=== PATIENT | female | born 1980 | race Caucasian/White ===

== ENCOUNTER → 2018-11-23 15:29 | Outpatient (CLI) | payer MEDICAID, SELFPAY ==
[2017-03-09 13:46] VITALS: BMI 24.0
[2018-11-23 18:38] LABS: HIV - WCH Non-Reactive (Nonreactive)
[2018-11-23 19:53] LABS: Chlamydia Trachomatis by PCR Negative (Negative); Neisserai gonorrhoeae by PCR Negative (Negative); Probe Check PASS; Sample Adequacy Control PASS; Specimen Processing Control PASS
[2018-11-24 01:11] LABS: Rapid Plasmin Reagin (RPR) NONREACTIVE (NONREACTIVE)
[2018-11-27 09:15] LABS: HEPATITIS B SURFACE AG Negative (Negative); Hep C Antibodies <0.1 s/co ratio (0.0-0.9)
== END ==
PROVIDERS: Visit Provider Obstetrics & Gynecology
DX: Z11.3 Encounter for screening for infections with a predominantly sexual mode of transmission (principal)
CPT/HCPCS: 36415; 86592; 86703; 86803; 87340; 87491; 87591

== ENCOUNTER → 2019-01-02 17:30 | Outpatient (CLI) | payer MEDICAID, SELFPAY ==
--- NOTE | 2019-01-02 17:18 | BI_ITS ---
MAMMOGRAPHY - BILATERAL SCREENING REASON FOR EXAM: Female, 38 years old. Routine annual screening examination. PERTINENT HISTORY: Aunt with breast cancer. Remote excisional right breast biopsy. TECHNIQUE: Digital bilateral breast angie (3D mammographic acquisition) in the CC and MLO projections. 2-D mediolateral oblique (MLO) and craniocaudad (CC) views of both breasts were obtained. CAD: Full Field Digital Mammography with Computer Added Detection was performed. COMPARISON: Comparison is made with prior study dated September 18, 2014 and April 06, 2016. FINDINGS: Breast Composition: The breasts are heterogeneously dense, which may obscure small masses. There are no dominant masses or suspicious calcifications. No other significant abnormalities are identified. There has been no significant change since the prior study. BI/SCREENING MAMM (CAD), BILAT IMPRESSION: Stable bilateral screening mammogram. Yearly follow-up mammogram recommended. (A) ASSESSMENT CATEGORY: BIRADS Category 1: Negative. A letter regarding these results will be sent to the patient by the facility within 30 days. Approximately 10% of breast cancers are not detected by mammography. A normal mammogram should not delay biopsy of a clinically suspicious abnormality. [id number] Electronically Signed: Patrice Tavarez, at 9:48 EST , Service support ,
== END ==
PROVIDERS: Visit Provider Obstetrics & Gynecology
DX: Z12.31 Encounter for screening mammogram for malignant neoplasm of breast (principal)
CPT/HCPCS: 77063; 77067

== ENCOUNTER → 2020-01-04 10:45 | Outpatient (CLI) | payer BC, SELFPAY ==
--- NOTE | 2020-01-04 10:51 | BI_ITS ---
MAMMOGRAPHY - BILATERAL SCREENING REASON FOR EXAM: Female, 39 years old. Routine annual screening examination. PERTINENT HISTORY: Aunt with breast cancer. History of remote right excisional breast biopsy. TECHNIQUE: Digital bilateral breast jose g (3D mammographic acquisition) in the CC and MLO projections. 2-D mediolateral oblique (MLO) and craniocaudad (CC) views of both breasts were obtained. CAD: Full Field Digital Mammography with Computer Added Detection was performed. COMPARISON: Comparison is made with prior examination dated January 02, 2019 and April 06, 2016. FINDINGS: Breast Composition: The breasts are heterogeneously dense, which may obscure small masses. There are no dominant masses or suspicious calcifications. No other significant abnormalities are identified. There has been no significant change since the prior study. BI/SCREEN MAMM (CAD) W/JOSE G BILAT IMPRESSION: Stable bilateral screening mammogram. Yearly follow-up mammogram recommended. (A) ASSESSMENT CATEGORY: BIRADS Category 1: Negative. A letter regarding these results will be sent to the patient by the facility within 30 days. Approximately 10% of breast cancers are not detected by mammography. A normal mammogram should not delay biopsy of a clinically suspicious abnormality. [id number] Electronically Signed: Patrice Tavarez, at 13:13 EST , Service support ,
== END ==
PROVIDERS: PCP Family Medicine; Referring Provider Obstetrics & Gynecology; Visit Provider Obstetrics & Gynecology
DX: Z12.31 Encounter for screening mammogram for malignant neoplasm of breast (principal)
CPT/HCPCS: 77063; 77067

== ENCOUNTER → 2020-11-28 13:50 | Outpatient (CLI) | payer BC, MEDICAID, SELFPAY ==
[2017-03-09 13:46] VITALS: BMI 24.0
[2020-11-28 16:11] LABS: T4 Free Direct 1.05 ng/dL (0.76-1.46); Thyroid Stim Hormone (TSH) 0.69 uIU/mL (0.358-3.74)
[2020-12-02 16:08] LABS: Testosterone, % Free 1.58 % (0.50-2.80); Testosterone, Free 0.14 ng/dL (0.10-0.85); Testosterone, Total 9 ng/dL (8-48)
[2020-12-02 21:14] LABS: Thyroid Peroxidase AB < 9 IU/mL (0-34)
== END ==
PROVIDERS: PCP Family Medicine; Referring Provider Internal Medicine Endocrinology, Diabetes & Metabolism; Visit Provider Internal Medicine Endocrinology, Diabetes & Metabolism
DX: E27.8 Other specified disorders of adrenal gland (principal)
CPT/HCPCS: 36415; 82533; 82627; 84402; 84403; 84439; 84443; 86376; 82626

== ENCOUNTER → 2021-01-05 10:33 | Outpatient (CLI) | payer MEDICAID, SELFPAY ==
[2020-11-28 14:47] VITALS: BMI 28.5
--- NOTE | 2021-01-05 10:35 | BI_ITS ---
MAMMOGRAPHY - BILATERAL SCREENING REASON FOR EXAM: Female, 40 years old. Routine annual screening examination. PERTINENT HISTORY: MAT AUNT 40-50S HAD BREAST CA PT GAINED 10# RT EXC BX TO REMOVE BENIGN CYSTS AGE 14 AT [facility]. RT SKIN TAG MARKED BILAT TENDERNESS TECHNIQUE: Digital bilateral breast jose g (3D mammographic acquisition) in the CC and MLO projections. 2-D mediolateral oblique (MLO) and craniocaudad (CC) views of both breasts were obtained. CAD: Full Field Digital Mammography with Computer Added Detection was performed. COMPARISON: 01/04/2020 and 01/02/2019 FINDINGS: Breast Composition: The breasts are heterogeneously dense, which may obscure small masses. There are no dominant masses or suspicious calcifications. No other significant abnormalities are identified. BI/SCRN MAMM (CAD)W/JOSE G BILAT IMPRESSION: Stable bilateral screening mammogram. Yearly follow-up mammogram recommended. (A) ASSESSMENT CATEGORY: BIRADS Category 2: Benign. A letter regarding these results will be sent to the patient by the facility within 30 days. Approximately 10% of breast cancers are not detected by mammography. A normal mammogram should not delay biopsy of a clinically suspicious abnormality. [id number] Electronically Signed: Dell Abebe MD at 16:07 EST Tel , Service support ,
== END ==
PROVIDERS: PCP Family Medicine; Referring Provider Obstetrics & Gynecology; Visit Provider Obstetrics & Gynecology
DX: Z12.31 Encounter for screening mammogram for malignant neoplasm of breast (principal)
CPT/HCPCS: 77063; 77067

== ENCOUNTER 2021-01-21 14:31 | Emergency (ER) | payer MEDICAID, SELFPAY ==
[2020-11-28 14:47] VITALS: BMI 28.5
[2021-01-21 14:32] VITALS: BP 134/90; PULSE 93; RESP 16; TEMP 35.9; O2SAT 100; BMI 26.9
--- NOTE | 2021-01-21 14:42 | ED.DCSUM_ITS ---
History of Present Illness Chief Complaint: Ear Problem Informant: Patient Onset: Month(s) Context: Sudden Onset Timing: Continuous Quality: Throbbing pain with ringing in ears Location: Bilateral Current Severity: Moderate Maximum Severity: Severe Worsened by: Nothing specific Relieved by: Nothing Associated Symptoms: Photophobia, sonophobia, history of migraines and feeling tilted . Narrative: She is a 40-year-old woman who presents with bilateral throbbing discomfort in both ears with ringing or ears. She does have history of migraines. She does complain of photophobia sonophobia presently. She does report that her balance at times is off. She does have triggers. She takes Imitrex to treat her migraines. She denies double vision, blurred vision partial loss or complete loss of vision. She denies trouble with speech or swallowing. She denies rhinorrhea, congestion postnasal drainage. She denies sore throat. Denies neck pain or neck stiffness. She denies drainage from her ears. She denies decreased hearing. She denies nausea, vomiting or diarrhea. She denies paresthesia, anesthesia or motor weakness. Prior similar symptoms: No Recent Illness/Hospitalization: No - Past Medical History (1) History of migraine headaches Status: Acute (2) Adrenal hyperplasia Status: Chronic (3) Goiter Status: Chronic (4) Secondary dysmenorrhea Status: Chronic Past Medical History - Allergies and Home Meds Allergies/Adverse Reactions: Allergies No Known Allergies Allergy (Verified 01/21/21 14:38) Primary Care Physician: Clarice Pate [employer]HT[employer]INTAINER, [employer]HT[employer] MAINTAINER-[employer] [Primary Care Provider] - Prior records reviewed: Yes Surgical History: noncontributory Lives: Alone - Patient is . Smoking Status: Current every day smoker Alcohol: Rare Drugs: None Review of Systems General: Denies: Chills, Fever, Malaise, Sweats Eyes: Denies: Visual changes - bilaterally, Blurred Vision - bilaterally, Diplopia ENT: Reports: Bilateral ear pain. Denies: Rhinorrhea, Sore throat Cardiovascular: Denies: Chest pain, Palpitations Respiratory: Denies: Dyspnea, Cough, Sputum, Dyspnea on exertion Gastrointestinal: Reports: Nausea - Intermittent. Denies: Abdominal pain, Vomiting, Diarrhea, Constipation, Melena, Hematochezia Genitourinary: Denies: Dysuria, Hematuria, Frequency Musculoskeletal: Denies: Myalgias, Arthralgias, Neck pain, Back pain, Swelling, Extremity Pain, -, - Skin: Denies: Rash, Wounds Neurological: Reports: Headache. Denies: Weakness, Parasthesia, Numbness Endocrine: Denies: Polyuria, Polydipsia Hematologic: Denies: Easy bruising, Easy bleeding Physical Exam Vital Signs/Narrative: Vital Signs Temp Pulse Resp BP Pulse Ox 01/21/21 14:32 96.7 F L 93 16 134/90 H 100 Inital Vital Signs reviewed: Yes General: Well nourished, Well developed, No Acute Distress Head: Normocephalic, Atraumatic Eyes: Perrl, EOMI, - - Is no nystagmus. There is no APD.. Negative for: Pale conjunctiva, Scleral icterus ENT: Moist mucous membranes, No rhinorrhea, TM's clear, - - There is no erythema, warmth or swelling over the mastoid region. Furthermore there is no pain to palpation. There is no decreased hearing.. Negative for: Sinus tenderness Neck: Supple, Nontender, No lymphadenopathy, No JVD Cardiovascular: Regular rate, Regular rhythm, No murmurs, Normal S1, Normal S2 Respiratory: No distress, CTA bilaterally Rectal: Deferred Back: Nontender, Normal Inspection Extremities: Nontender, No edema. Negative for: Tenderness, Edema Skin: Normal color, No rash, No Trauma. Negative for: Cyanosis, Diaphoresis, Jaundice Neurological: Alert, Oriented x3, Cranial nerves II-XII grossly intact, Normal Strength, Normal Sensation, Normal DTR, Normal Gait, - - Finger nose to finger performed without abnormality. Gait without ataxia or unsteadiness. Psychological: Depressed Diagnostic/Tx/Re-eval - Medical Decision Making With complaint of ringing or ears and throbbing pain with sonophobia photophobia this may represent a vestibular migraine. Also need to consider ear infection, M?ni?re's disease. The latter 2 are unlikely. Patient was reassessed at 1611. She reports significant improvement. She states she still has ringing in ears. Patient was informed follow-up with her doctor for ENT referral. Dr. Delgado is on-call. She was given his name for follow-up. ED Disposition - Plan for ED Patient: Disposition: Home or Assisted Living Diagnosis: Migraine variant, intractable, Tinnitus of both ears Instructions: ED, Migraine (Classical) Referrals: Clarice Pate [employer]S MAINTAINER, [employer] MAINTAINER-[employer] [Primary Care Provider] - 3-5 Days Jose Manuel Delgado MD [STAFF PHYSICIAN] - 1 Week
[2021-01-21] MEDS: DiphenhydrAMINE 50 MG/ML Syringe 25 MG IV (15:04)
[2021-01-21] MEDS: Metoclopramide 10 MG/2 ML Vial IV (15:05)
[2021-01-21] MEDS: Ketorolac 15 MG/ML Vial IV (15:06)
[2021-01-21 16:30] VITALS: BP 124/98; PULSE 59; RESP 18; O2SAT 98
== END 2021-01-21 16:30 | disposition home or self-care (01) ==
PROVIDERS: Emergency Provider Emergency Medicine; PCP Nurse Practitioner Family
DX: H93.13 Tinnitus, bilateral (principal); G43.919 Migraine, unspecified, intractable, without status migrainosus; F17.200 Nicotine dependence, unspecified, uncomplicated
CPT/HCPCS: 96374; 96375; 99284; A4216

== ENCOUNTER 2022-01-06 12:03 | Outpatient (CLI) | payer MEDICAID, SELFPAY ==
--- NOTE | 2022-01-06 12:06 | BI_ITS ---
MAMMOGRAPHY - BILATERAL SCREENING REASON FOR EXAM: Female, 41 years old. Routine annual screening examination. PERTINENT HISTORY: Aunt with breast cancer. Remote right excisional breast biopsy. TECHNIQUE: Digital bilateral breast jose g (3D mammographic acquisition) in the CC and MLO projections. 2-D mediolateral oblique (MLO) and craniocaudad (CC) views of both breasts were obtained. CAD: Full Field Digital Mammography with Computer Added Detection was performed. COMPARISON: Comparison is made with prior study dated 01/05/2021 and 01/04/2020. FINDINGS: Breast Composition: The breasts are heterogeneously dense, which may obscure small masses. There are no dominant masses or suspicious calcifications. No other significant abnormalities are identified. There has been no significant change since the prior study. BI/SCRN MAMM (CAD)W/JOSE G BILAT IMPRESSION: Stable bilateral screening mammogram. Yearly follow-up mammogram recommended. (A) ASSESSMENT CATEGORY: BIRADS Category 1: Negative. A letter regarding these results will be sent to the patient by the facility within 30 days. Approximately 10% of breast cancers are not detected by mammography. A normal mammogram should not delay biopsy of a clinically suspicious abnormality. [id number] Electronically Signed: Patrice Tavarez MD at 12:49 EST ,
== END 2022-01-06 23:59 | disposition home or self-care (01) ==
LOC: OPBI 12:04
PROVIDERS: PCP Nurse Practitioner Family; Visit Provider Obstetrics & Gynecology
DX: Z12.31 Encounter for screening mammogram for malignant neoplasm of breast (principal); Z80.3 Family history of malignant neoplasm of breast
CPT/HCPCS: 77063; 77067

== ENCOUNTER → 2023-01-04 | Outpatient (CLI) | payer MEDICAID, SELFPAY ==
[2023-01-04 11:59] LABS: Estradiol 162.4 pg/mL; Follicle Stimulating Hormone 7.7 mIU/mL; Luteinizing Hormone 31.6 mIU/mL; T4 Free Direct 0.93 ng/dL (0.76-1.46); Thyroid Stim Hormone (TSH) 1.23 uIU/mL (0.358-3.74)
== END | disposition home or self-care (01) ==
LOC: WOBLAB 10:29
PROVIDERS: PCP Nurse Practitioner Family; Visit Provider Obstetrics & Gynecology
DX: N95.1 Menopausal and female climacteric states (principal)
CPT/HCPCS: 36415; 82670; 83001; 83002; 84439; 84443

== ENCOUNTER → 2023-01-18 | Outpatient (CLI) | payer MEDICAID, SELFPAY ==
--- NOTE | 2023-01-18 07:45 | BI_ITS ---
MAMMOGRAPHY - BILATERAL SCREENING REASON FOR EXAM: Female, 42 years old. Routine annual screening examination. PERTINENT HISTORY: Aunt with breast cancer. History of remote right breast biopsy. TECHNIQUE: Digital bilateral breast jose g (3D mammographic acquisition) in the CC and MLO projections. 2-D mediolateral oblique (MLO) and craniocaudad (CC) views of both breasts were obtained. CAD: Full Field Digital Mammography with Computer Added Detection was performed. COMPARISON: Comparison is made with prior study January 06, 2022 and January 05, 2021. FINDINGS: Breast Composition: There are scattered areas of fibroglandular density. There are no dominant masses or suspicious calcifications. No other significant abnormalities are identified. There has been no significant change since the prior study. BI/SCRN MAMM (CAD)W/JOSE G BILAT IMPRESSION: Stable bilateral screening mammogram. Yearly follow-up mammogram recommended. (A) ASSESSMENT CATEGORY: BIRADS Category 1: Negative. A letter regarding these results will be sent to the patient by the facility within 30 days. Approximately 10% of breast cancers are not detected by mammography. A normal mammogram should not delay biopsy of a clinically suspicious abnormality. [id number] Electronically Signed: Patrice Tavarez MD at 8:45 EDT ,
== END | disposition home or self-care (01) ==
LOC: OPBI 07:43
PROVIDERS: PCP Nurse Practitioner Family; Visit Provider Obstetrics & Gynecology
DX: Z12.31 Encounter for screening mammogram for malignant neoplasm of breast (principal)
CPT/HCPCS: 77063; 77067